=== PATIENT | male | born 1980 | race American Indian/Alaskan Native ===

== ENCOUNTER 2021-01-30 23:43 | Observation (INO) | payer BC, MEDICAID ==
[2021-01-31 01:41] LABS: Basophils % (Auto) 0.5 % (0.0-1.8); Hematocrit 40.4 % (35.5-45.6); Hemoglobin 14.4 gm/dl (11.8-15.2); Lymphocytes # (Auto) 0.7 K/mm3 (1.2-5.4); Lymphocytes % (Auto) 13.4 % (13.4-35.0); Mean Corpuscular HGB Conc 36 % (32-34); Mean Corpuscular Volume 93 fl (84-94); Monocytes # (Auto) 0.5 K/mm3 (0.0-0.8); Monocytes % (Auto) 8.7 % (0.0-7.3); Platelet Count 183 K/mm3 (140-440); Red Blood Count 4.33 M/mm3 (3.65-5.03); Red Cell Distribution Width 12.7 % (13.2-15.2)
[2021-01-31 01:59] LABS: BUN/Creatinine Ratio 23; Blood Urea Nitrogen 27 mg/dL (9-20); Calcium 10.2 mg/dL (8.4-10.2); Hemolysis Index 2
--- NOTE | 2021-01-31 02:36 | Emergency Department Report ---
HPI - General Chief Complaint: GI Bleed Time Seen by Provider: 01/31/21 02:35 - HPI HPI: Room 4 The patient is a 40-year-old male present with a chief complaint of hematemesis. The patient states over the past 1.5 weeks he has lost his appetite. Patient complains of a midepigastric pressure whenever he has to belch. The patient states over the past 4 days he has had nausea vomiting including bright red blood and finally coffee-ground emesis. Patient states he has not had a bowel movement in 4 days but approximately 5 days ago he had an episode of black stool. Patient states he has been unable to keep any food down for the past 5 days. ED Past Medical Hx - Past Medical History Previous Medical History?: No - Surgical History Past Surgical History?: No - Family History Family history: no significant - Social History Smoking Status: Never Smoker Substance Use Type: None (Denies illicit drug use), Alcohol (1 pint of alcohol daily) ED Review of Systems ROS: Stated complaint: NAUSEA;VOMITING Other details as noted in HPI Constitutional: no symptoms reported Eyes: denies: eye pain ENT: denies: throat pain Respiratory: no symptoms reported Cardiovascular: denies: chest pain Endocrine: no symptoms reported Gastrointestinal: abdominal pain, nausea, vomiting, hematemesis, melena Genitourinary: denies: dysuria Musculoskeletal: denies: back pain Neurological: denies: headache Physical Exam - Physical Exam Vital Signs: Vital Signs 01/31/21 01/31/21 00:45 01:00 Temperature 98.8 F Pulse Rate 116 H Respiratory 18 18 Rate Blood Pressure 141/93 O2 Sat by Pulse 98 Oximetry Physical Exam: GENERAL: The patient is well-developed well-nourished male lying on stretcher not appearing to be in acute distress. [] HEENT: Normocephalic. Atraumatic. Extraocular motions are intact. Patient has moist mucous membranes. NECK: Supple. Trachea midline CHEST/LUNGS: Clear to auscultation. There is no respiratory distress noted. HEART/CARDIOVASCULAR: Regular. There is no tachycardia. There is no gallop rub or murmur. ABDOMEN: Abdomen is soft, nontender. Patient has normal bowel sounds. There is no abdominal distention. SKIN: There is no rash. There is no edema. There is no diaphoresis. NEURO: The patient is awake, alert, and oriented. The patient is cooperative. The patient has normal speech MUSCULOSKELETAL: There is no evidence of acute injury. RECTAL: Guaiac negative. Paucity of stool ED Course Vital Signs 01/31/21 01/31/21 00:45 01:00 Temperature 98.8 F Pulse Rate 116 H Respiratory 18 18 Rate Blood Pressure 141/93 O2 Sat by Pulse 98 Oximetry ED Medical Decision Making - Lab Data Result diagrams: 01/31/21 01:03 01/31/21 01:03 - Radiology Data Radiology results: report reviewed (CT abdomen pelvis), image reviewed (CT a bdomen pelvis) [facility] [address] [place] [address] Cat Scan Report Signed Patient: MAGNUS DOBBINS JR MR#: [id number] : 1980 Acct:[id number] Age/Sex: 40 / M A DM Date: 01/30/21 Loc: ED Attending Dr: Ordering Physician: KEISHA ACUÑA MD Date of Service: 01/31/21 Procedure(s): CT abdomen pelvis w con Accession Number(s): [id number] cc: KEISHA ACUÑA MD CT abdomen pelvis w con INDICATION: Epigastric pain with hematemesis x 1.5 weeks. COMPARISON: None TECHNIQUE: Abdominal and pelvic CT exam performed. All CT scans at this location are performed using CT dose reduction for ALARA by means of automated exposure control. FINDINGS: CT ABDOMEN and PELVIS: Lung Bases: No significant abnormality. Liver: Decreased attenuation consistent with hepatic steatosis. Biliary: No significant abnormality. Spleen: No significant abnormality. Pancreas: No significant abnormality. Adrenals: 1.6 cm left adrenal adenoma. Kidneys: Nonobstructing 2 mm right lower pole stone. A couple of small left simple appearing renal cysts.. Lymphatics: No lymphadenopathy. Vasculature: No significant abnormality. Bowel: No significant abnormality. Normal appendix. Pelvis: No significant abnormality. Osseous Structures: No aggressive osseous lesion. Small sclerotic right iliac bone lesion is well- defined and is most likely benign. Additional Findings: None IMPRESSION: 1. No acute abnormality of the abdomen or pelvis. 2. Nonobstructing punctate right lower pole renal stone. 3. Hepatic steatosis. Signer Name: Gigi Dukes MD Signed: 01/31/2021 5:15 AM Workstation Name: [id number] Transcribed By: CS Dictated By: Gigi Dukes MD Electronically Authenticated By: Gigi Dukes MD Signed Date/Time: 01/31/21514 DD/ 0 TD/TT: - Differential Diagnosis GI bleed, pancreatitis, peptic ulcer disease Critical care attestation.: If time is entered above; I have spent that time in minutes in the direct care of this critically ill patient, excluding procedure time. ED Disposition Clinical Impression: Acute pancreatitis, Elevated LFTs, Abdominal pain, Hematemesis Disposition: OP ADMIT IP TO THIS HOSP Is pt being admited?: Yes Does the pt Need Aspirin: No Condition: Fair Referrals: PRIMARY CARE, [Primary Care Provider] - 3-5 Days Forms: Accompanied Note Time of Disposition: 05:24 (Hospitalist paged (Dr Lal))
[2021-01-31] MEDS ORDERED: PANTOPRAZOLE 40 MG INJ IV ONE (02:55)
[2021-01-31] MEDS ORDERED: SODIUM CHLORIDE 0.9% 1000 ML 1,000 ML IV ONE ×3 (02:55→11:00)
[2021-01-31] MEDS ORDERED: ONDANSETRON 4 MG/2 ML INJ IV ONE (02:55)
[2021-01-31 03:38] LABS: INR 1.02 (0.87-1.13)
[2021-01-31 03:39] LABS: Albumin 5.7 g/dL (3.9-5); Bilirubin,Direct 1.4 mg/dL (0-0.2); Partial Thromboplastin Time 28.7 Sec. (24.2-36.6)
--- NOTE | 2021-01-31 05:19 | Cat Scan Report ---
CT abdomen pelvis w con INDICATION: Epigastric pain with hematemesis x 1.5 weeks. COMPARISON: None TECHNIQUE: Abdominal and pelvic CT exam performed. All CT scans at this location are performed using CT dose reduction for ALARA by means of automated exposure control. FINDINGS: CT ABDOMEN and PELVIS: Lung Bases: No significant abnormality. Liver: Decreased attenuation consistent with hepatic steatosis. Biliary: No significant abnormality. Spleen: No significant abnormality. Pancreas: No significant abnormality. Adrenals: 1.6 cm left adrenal adenoma. Kidneys: Nonobstructing 2 mm right lower pole stone. A couple of small left simple appearing renal cy sts.. Lymphatics: No lymphadenopathy. Vasculature: No significant abnormality. Bowel: No significant abnormality. Normal appendix. Pelvis: No significant abnormality. Osseous Structures: No aggressive osseous lesion. Small sclerotic right iliac bone lesion is well-def ined and is most likely benign. Additional Findings: None IMPRESSION: 1. No acute abnormality of the abdomen or pelvis. 2. Nonobstructing punctate right lower pole renal stone. 3. Hepatic steatosis. Signer Name: Gigi Dukes MD Signed: 01/31/2021 5:15 AM Workstation Name: [id number]
[2021-01-31] MEDS ORDERED: fentaNYL 100 MCG/2 ML INJ IV ONE (05:40)
[2021-01-31] MEDS: MORPHINE 2 MG/1 ML INJ IV PRN ×2 (08:38→17:58)
[2021-01-31] MEDS ORDERED: ONDANSETRON 4 MG/2 ML INJ IV PRN (10:25)
[2021-01-31] MEDS ORDERED: LORazepam 2 MG/ML VIAL IV PRN (10:25)
[2021-01-31] MEDS ORDERED: hydrALAZINE 20 MG/1 ML INJ IV PRN (10:25)
--- NOTE | 2021-01-31 10:26 | History and Physical Report ---
History of Present Illness Date of examination: 01/31/21 Date of admission: 01/31/21 05:45 History of present illness: The patient is a 40-year-old male present with a chief complaint of hematemesis. The patient states over the past 1.5 weeks he has lost his appetite. Patient complains of a midepigastric pressure whenever he has to belch. The patient states over the past 4 days he has had nausea vomiting including bright red blood and finally coffee-ground emesis. Patient states he has not had a bowel movement in 4 days but approximately 5 days ago he had an episode of black stool. Patient states he has been unable to keep any food down for the past 5 days. Medications and Allergies Allergies Allergy/AdvReac Type Severity Reaction Status Date / Time No Known Allergies Allergy Verified 01/31/21 01:00 Home Medications Medication Instructions Recorded Confirmed Last Taken Type No Known Home Medications [No 02/01/21 02/01/21 Unknown History Reported Home Medications] Active Meds: Active Medications Sodium Chloride (Nacl 0.9% 1000 Ml) 1,000 mls @ 125 mls/hr IV ONCE ONE Stop: 01/31/21 12:07 Last Admin: 01/31/21 04:34 Dose: 125 mls/hr Documented by: Morphine Sulfate (Morphine 2 Mg/1 Ml Inj) 2 mg IV Q4H PRN PRN Reason: Pain, Moderate (4-6) Last Admin: 01/31/21 08:38 Dose: 2 mg Documented by: Exam - Constitutional Vitals: Temp Pulse Resp BP Pulse Ox 98.8 F 106 H 16 123/77 97 01/31/21 00:45 01/31/21 04:01 01/31/21 07:08 01/31/21 04:01 01/31/21 04:01 Results - Labs CBC & Chem 7: 02/01/21 05:27 02/01/21 05:27 Labs: Abnormal lab results 01/31/21 01/31/21 01/31/21 Range/Units 01:03 01:03 03:01 MCH 33 H (28-32) pg MCHC 36 H (32-34) % RDW 12.7 L (13.2-15.2) % [place] % (Auto) 8.7 H (0.0-7.3) % Lymph # (Auto) 0.7 L (1.2-5.4) K/mm3 Seg Neutrophils % 77.4 H (40.0-70.0) % Sodium 134 L (137-145) mmol/L Chloride 83.4 L (98-107) mmol/L Carbon Dioxide 16 L (22-30) mmol/L BUN 27 H (9-20) mg/dL Glucose 128 H (75-100) mg/dL Total Bilirubin 2.20 H (0.1-1.2) mg/dL Direct Bilirubin 1.4 H (0-0.2) mg/dL AST 632 H (5-40) units/L ALT 203 H (7-56) units/L Alkaline Phosphatase 198 H (35-129) units/L Total Protein 9.3 H (6.3-8.2) g/dL Albumin 5.7 H (3.9-5) g/dL Lipase 157 H (13-60) units/L Assessment and Plan Acute pancreatitis, Elevated LFTs, Abdominal pain, Hematemesis EtOH abuse
[2021-01-31] MEDS ORDERED: SODIUM CHLORIDE 0.9% 1000 ML 1,000 ML IV SCH (12:00)
[2021-01-31] MEDS: PANTOPRAZOLE 40 MG INJ IV SCH ×2 (12:15→22:18)
[2021-01-31 14:16] LABS: Hematocrit 33.6 % (35.5-45.6); Hemoglobin 11.9 gm/dl (11.8-15.2)
--- NOTE | 2021-01-31 16:48 | Event Note ---
Date: 01/31/21 called for abd pain and upper gi bleed and declining hgb egd tomorrow, please keep npo past mn tonight
[2021-01-31 23:35] LABS: Hematocrit 33.5 % (35.5-45.6); Hemoglobin 11.8 gm/dl (11.8-15.2)
[2021-02-01] MEDS: HYDROmorphone 1 MG/1 ML INJ IV PRN ×2 (00:40→14:17)
[2021-02-01 06:17] LABS: Eosinophils # (Auto) 0.1 K/mm3 (0.0-0.4); Eosinophils % (Auto) 2.5 % (0.0-4.3); Hematocrit 33.8 % (35.5-45.6); Hemoglobin 11.8 gm/dl (11.8-15.2); Lymphocytes # (Auto) 0.5 K/mm3 (1.2-5.4); Lymphocytes % (Auto) 16.4 % (13.4-35.0); Mean Corpuscular HGB Conc 35 % (32-34); Mean Corpuscular Volume 94 fl (84-94); Monocytes # (Auto) 0.3 K/mm3 (0.0-0.8); Monocytes % (Auto) 10.3 % (0.0-7.3); Red Cell Distribution Width 12.6 % (13.2-15.2)
[2021-02-01 06:18] LABS: Platelet Count 98 K/mm3 (140-440)
[2021-02-01 06:29] LABS: BUN/Creatinine Ratio 19; Blood Urea Nitrogen 17 mg/dL (9-20); Calcium 8.9 mg/dL (8.4-10.2); Hemolysis Index 55
[2021-02-01] MEDS ORDERED: SODIUM CHLORIDE 0.9% 1000 ML 1,000 ML IV SCH (07:00)
[2021-02-01] MEDS ORDERED: WATER FOR IRRIG STERILE 250 ML BOTTLE IR ONE (07:20)
[2021-02-01] MEDS ORDERED: WATER FOR IRRIG STERILE 1,000 ML BOTTLE ONE (07:20)
--- NOTE | 2021-02-01 07:48 | Gastroenterology Consultation ---
History of Present Illness - Reason for Consult Consult date: 02/01/21 Abd pain, ugi bleed Requesting physician: STACI MURRY - History of Present Illness This is a pleasant 40-year-old gentleman who presents with headache abdominal pain and hematemesis Patient reports over the last few weeks he has been drinking significantly more vodka than usual due to stress He reports drink too much alcohol and some beer as well about 5 days ago which gave him a severe headache and he also developed severe abdominal pain mid abdomen associate with nausea and recurrent vomiting and retching patient reports the multiple episodes of bright red vomitus and therefore came in for further evaluation. In the ER he did report an episode of melena however to me he denied melena He reports drinking about 1/4 L of vodka daily currently Denies history of GI complaints or bleeding in the past Obtained/updated/reviewed patient's current medications Past History Past Medical History: No medical history Past Surgical History: No surgical history Social history: alcohol abuse Family history: no significant family history Medications and Allergies Allergies Allergy/AdvReac Type Severity Reaction Status Date / Time No Known Allergies Allergy Verified 01/31/21 01:00 Home Medications Medication Instructions Recorded Confirmed Last Taken Type No Known Home Medications [No 02/01/21 02/01/21 Unknown History Reported Home Medications] Active Meds: Active Medications Hydralazine HCl (Hydralazine 20 Mg/1 Ml Inj) 5 mg IV Q30MIN PRN PRN Reason: Hypertension Hydromorphone HCl (Hydromorphone 1 Mg/1 Ml Inj) 0.5 mg IV Q4H PRN PRN Reason: Pain , Severe (7-10) Last Admin: 02/01/21 00:40 Dose: 0.5 mg Documented by: Sodium Chloride (Nacl 0.9% 1000 Ml) 1,000 mls @ 50 mls/hr IV DIRECT FLORENCIA Lorazepam (Lorazepam 2 Mg/Ml Vial) 2 mg IV Q4H PRN PRN Reason: Agitation Ondansetron HCl (Ondansetron 4 Mg/2 Ml Inj) 4 mg IV Q8H PRN PRN Reason: N/V unrelieved by Mel Pantoprazole Sodium (Pantoprazole 40 Mg Inj) 40 mg IV BID FLORENCIA Last Admin: 01/31/21 22:18 Dose: 40 mg Documented by: Review of Systems - Review of Systems All systems: negative (10 Systems reviewed and negative except as mentioned above in the history of present illness) Exam - Constitutional Vital Signs: Temp Pulse Resp BP Pulse Ox 97.9 F 80 17 150/99 99 02/01/21 05:15 02/01/21 05:16 02/01/21 05:15 02/01/21 05:15 02/01/21 05:16 General appearance: no acute distress - EENT Eyes: EOM intact - Neck Neck: supple - Respiratory Respiratory effort: normal - Cardiovascular Rhythm: regular - Gastrointestinal General gastrointestinal: Present: soft, non-tender, non-distended - Integumentary Integumentary: Present: warm, dry - Neurologic Neurological: alert and oriented x3 - Psychiatric Psychiatric: appropriate mood/affect - Labs CBC & Chem 7: 02/01/21 05:27 02/01/21 05:27 Lab Results: Laboratory Results - last 24 hr 01/31/21 01/31/21 02/01/21 13:56 22:59 05:27 WBC 2.8 L RBC 3.60 L Hgb 11.9 11.8 11.8 Hct 33.6 L D 33.5 L 33.8 L MCV 94 MCH 33 H MCHC 35 H RDW 12.6 L Plt Count 98 L Lymph % (Auto) 16.4 Sumner % (Auto) 10.3 H Eos % (Auto) 2.5 Baso % (Auto) 1.0 Lymph # (Auto) 0.5 L Sumner # (Auto) 0.3 Eos # (Auto) 0.1 Baso # (Auto) 0.0 Seg Neutrophils % 69.8 Seg Neutrophils # 2.0 Sodium Potassium Chloride Carbon Dioxide Anion Gap BUN Creatinine Estimated GFR BUN/Creatinine Ratio Glucose Calcium 02/01/21 05:27 WBC RBC Hgb Hct MCV MCH MCHC RDW Plt Count Lymph % (Auto) Sumner % (Auto) Eos % (Auto) Baso % (Auto) Lymph # (Auto) Sumner # (Auto) Eos # (Auto) Baso # (Auto) Seg Neutrophils % Seg Neutrophils # Sodium 134 L Potassium 4.2 Chloride 92.3 L Carbon Dioxide 19 L Anion Gap 27 BUN 17 Creatinine 0.9 Estimated GFR > 60 BUN/Creatinine Ratio 19 Glucose 124 H Calcium 8.9 Assessment and Plan Regarding abdominal pain and hematemesis differential diagnosis includes peptic ulcer disease AVMs Madie-Arnold tear varices etc. Therefore given overt GI bleeding patient would benefit from EGD for further evaluation and management. In the meantime continue PPI Regarding elevated liver enzymes the liver pattern is most consistent with alcohol related injury to the liver. I discussed with the patient the im portance of alcohol cessation and he should follow-up with me as an outpatient in 2 months to ensure compliance and improvement of liver function tests Patient does not clinically appear to have cirrhosis at this juncture based upon labs Patient does not clinically have pancreatitis at this juncture either as he does not have imaging or symptoms classic with pancreatitis and his lipase was just under 3 times upper limit of normal - Patient Problems (1) Abdominal pain Current Visit: Yes Status: Acute (2) Elevated LFTs Current Visit: Yes Status: Acute (3) Hematemesis Current Visit: Yes Status: Acute
[2021-02-01] MEDS ORDERED: LIDOCAINE MPF (2%) 20 MG/1 ML VIAL 5 ML ONE (08:36)
[2021-02-01] MEDS ORDERED: ONDANSETRON 4 MG/2 ML INJ ONE (08:36)
[2021-02-01] MEDS ORDERED: fentaNYL 100 MCG/2 ML INJ ONE (08:36)
[2021-02-01] MEDS ORDERED: propofoL 200 MG/20 ML VIAL IV ONE ×2 (08:37→08:43)
--- NOTE | 2021-02-01 08:39 | Anesthesia Day of Surgery ---
Anesthesia Day of Surgery - Day of Surgery Patient Examined: Yes Patient H&P Reviewed: Yes Patient is NPO: Yes
--- NOTE | 2021-02-01 08:39 | Anesthesia Consultation ---
Anesthesia Consult and Med Hx Date of service: 02/01/21 - Airway Anesthetic Teeth Evaluation: Poor ROM Head & Neck: Adequate Mental/Hyoid Distance: Adequate Mallampati Class: Class III Intubation Access Assessment: Possibly Difficult - Pulmonary Exam CTA: Yes - Cardiac Exam Cardiac Exam: RRR - Pre-Operative Health Status ASA Pre-Surgery Classification: ASA3 Proposed Anesthetic Plan: MAC - Pulmonary Hx Smoking: No Hx Respiratory Symptoms: No - Cardiovascular System Hx Hypertension: No - Central Nervous System CVA: No - Endocrine Hx Renal Disease: No Hx Liver Disease: Yes Hx Insulin Dependent Diabetes: No Hx Non-Insulin Dependent Diabetes: No Hx Thyroid Disease: No - Hematic Hx Anemia: Yes - Other Systems Hx Alcohol Use: Yes (EtOH abuse)
--- NOTE | 2021-02-01 08:55 | Operative Report ---
Operative Report Operative Report: DOS: 02/01/21 SURGEON: Tom Solorzano MD EGD WITH BIOPSY REPORT PREOPERATIVE DIAGNOSIS and POSTOPERATIVE DIAGNOSIS: Hematemesis, abdominal pain ESTIMATED BLOOD LOSS: Minimal DESCRIPTION OF PROCEDURE: A high-resolution EGD scope was passed through the oropharynx, esophagus, stomach, and second portion of duodenum. The scope was carefully withdrawn. Retroflexion was performed in the stomach. At the end of the procedure, the scope was cleaned using normal technique. Vital signs monitored continuously throughout. SEDATION: Provided by Anesthesiology Services. COMPLICATIONS: None. FINDINGS: * No gross lesions in the entire examined duodenum * Moderate gastritis localized to the gastric antrum with focal erosions and erythema. Biopsies were taken to rule out H. Pylori infection. A total of 5 biopsies were taken, 2 from the antrum, 1 from the incisura, 2 from the body. * GE junction located 37 cm from the incisors * 1 cm hiatal hernia * Severe LA grade D reflux esophagitis in the very distal esophagus which gradually improved with proximal advancement of the esophagus so that by the 30 cm britt the esophagitis was resolved. RECOMMENDATIONS: Abdominal pain and GI bleeding from severe reflux esophagitis as well as gastritis. Symptoms starting to improve therefore from GI standpoint okay to erika jiang patient this afternoon as long as he tolerates a diet and he should be discharged on pantoprazole 40 mg daily and alcohol cessation was again reiterated with the patient He should follow-up with me in the office in 2 months and I will ensure he has no further symptoms and alcohol cessation compliance and monitor his liver
--- NOTE | 2021-02-01 09:57 | Post Anesthesia Evaluation ---
- Post Anesthesia Evaluation Patient Participated: Yes Airway Patent: Yes Stable Respiratory Function: Yes Nausea/Vomiting: No Temp > 96.8F: Yes Pain Manageable: Yes Adequeate Hydration: Yes Anesthesia Complications: No
[2021-02-01] MEDS: PANTOPRAZOLE 40 MG INJ IV SCH (11:42)
[2021-02-01 13:17] VITALS: BP 143/94
--- NOTE | 2021-02-01 14:36 | Discharge Summary ---
Providers - Providers Date of Admission: 01/31/21 05:45 Date of discharge: 02/01/21 Attending physician: STACI MURRY 01/31/21 10:28 Consult to Physician [CONS] Routine Comment: Consulting Provider: ORVILLE CALI Physician Instructions: Reason For Exam: Hematemesis Primary care physician: CAR [employer]UDIO INSTALLER Hospitalization Condition: Fair Disposition: DC-01 TO HOME OR SELFCARE Final Discharge Diagnosis (Prints w/discharge instructions): Acute pancreatitis,. Elevated LFTs,. Abdominal pain,. Hematemesis. EtOH abuse. GERD. Pancytopenia. Mild hyponatremia Time spent for discharge: 34 minutes Core Measure Documentation - Palliative Care Palliative Care/ Comfort Measures: Not Applicable Exam - Constitutional Vitals: Temp Pulse Resp BP Pulse Ox 99.0 F 76 20 143/94 98 02/01/21 11:25 02/01/21 11:25 02/01/21 14:17 02/01/21 11:25 02/01/21 11:25 Plan Activity: advance as tolerated Weight Bearing Status: Weight Bear as Tolerated Diet: advance as tolerated Special Instructions: other Follow up with: PRIMARY CARE, [Primary Care Provider] - 3-5 Days Forms: Accompanied Note Prescriptions: Folic Acid [Folvite] 1 mg PO QDAY #30 tablet Pantoprazole [Protonix TAB] 40 mg PO QDAC #30 tablet Thiamine [Vitamin B-1] 100 mg PO QDAY #30 tablet
[2021-02-01] MEDS ORDERED: FOLIC ACID 1 MG TAB PO SCH (15:00)
[2021-02-01] MEDS ORDERED: THIAMINE 100 MG TAB PO SCH (15:00)
[2021-02-01 15:20] LABS: Hematocrit 31.6 % (35.5-45.6); Hemoglobin 11.2 gm/dl (11.8-15.2)
[2021-02-02] MEDS ORDERED: PANTOPRAZOLE 40 MG TAB PO SCH (07:30)
== END 2021-02-01 20:00 | disposition home or self-care (01) ==
LOC: ED 23:43 → 3A 01-31 05:45
PROVIDERS: ADMIT Internal Medicine Geriatric Medicine; ATTEND Internal Medicine
DX: K92.2 Gastrointestinal hemorrhage, unspecified (principal); K85.90 Acute pancreatitis without necrosis or infection, unspecified; R79.89 Other specified abnormal findings of blood chemistry; F10.129 Alcohol abuse with intoxication, unspecified; K21.9 Gastro-esophageal reflux disease without esophagitis; D61.818 Other pancytopenia; E87.1 Hypo-osmolality and hyponatremia; Z79.899 Other long term (current) drug therapy
CPT/HCPCS: 36415; 43239; 74177; 80048; 80076; 82271; 83690; 85014; 85018; 85025; 85610; 85730; 86850; 86900; 86901; 88305; 88342; 96361; 96374; 96375; 96376; 99285; C9113; G0378; J1170; J2270; J2405; J2704; J3010; J7030; Q9967